=== PATIENT | male | born 1965 | race Caucasian/White ===

== ENCOUNTER → 2025-06-03 | Outpatient (CLI) | payer BC ==
[2025-06-03 13:36] LABS: Basophils # (A) 0.03 X 10*3/uL (0.00-0.10); Basophils % (A) 0.6 %; Eosinophils # (A) 0.37 X 10*3/uL (0.04-0.35); Eosinophils % (A) 7.0 %; HCT 40.5 % (39.6-50.0); HGB 14.3 g/dL (13.0-17.0); Immature Grans, Automated 0.20 %; Lymphocytes # (A) 1.95 X 10*3/uL (0.90-5.00); Lymphocytes % (A) 36.7 %; MCH 32.9 pg (27.0-32.0); MCHC 35.3 g/dL (32.0-37.0); MCV 93.1 FL (80.0-97.0); Monocytes # (A) 0.31 X 10*3/uL (0.20-1.00); Monocytes % (A) 5.8 %; NRBC Per 100 WBC 0 X 10*3/uL (0.00-0.01); Neutrophils # (A) 2.65 X 10*3/uL (1.80-7.70); Neutrophils % (A) 49.7 %; Platelet Count 241 X 10*3/uL (140-440); RBC 4.35 X 10*6/uL (4.40-5.60); RDW 12.1 % (11.5-14.5); WBC 5.32 X 10*3/uL (4.50-10.00)
[2025-06-03 13:40] LABS: Anion Gap 9.90 mmol/L (4.00-12.00); BUN/Creat Ratio 11.78 Ratio (12.00-20.00); Blood Urea Nitrogen 10.6 mg/dL (9.0-27.0); Calcium 9.2 mg/dL (8.7-10.3); Carbon Dioxide 26.1 mmol/L (21.6-31.8); Chloride 101 mmol/L (96-109); Glucose 110 mg/dL (70-110); Potassium 4.0 mmol/L (3.5-5.5); Sodium 137 mmol/L (135-145)
[2025-06-03 15:26] LABS: Bilirubin,Urine Negative (Negative); Blood,Urine Negative (Negative); Color,Urine Yellow (Yellow); Ketones,Urine Negative (Negative); Nitrite,Urine Negative (Negative); PH, Urine 6.5; Specific Gravity,Urine 1.003 (1.001-1.030); Urobilinogen,Urine 0.2 E.U./DL
== END | disposition home or self-care (01) ==
LOC: LABPAT 08:07
PROVIDERS: ATTEND Urology
DX: Z01.812 Encounter for preprocedural laboratory examination (principal); N20.0 Calculus of kidney
CPT/HCPCS: 80048; 81003; 85025; 87086

== ENCOUNTER 2025-06-13 09:45 | Day surgery (SDC) | payer BC ==
[~2025-06-13 09:45] MED LIST: LIDOCAINE 1% (10MG/ML) FOR IV START INTRADERMA PRN
--- NOTE | 2025-06-13 10:14 | XR ---
EXAMINATION TYPE: XR KUB DATE OF EXAM: 06/13/2025 10:07 AM COMPARISON: None. CLINICAL INDICATION: Male, 60 years old with history of N20.0 Z01.818, presurgical evaluation for kid zaki stone TECHNIQUE: XR KUB view(s) obtained supine view. FINDINGS: There is a normal bowel gas pattern. Psoas margins are normal. No organomegaly is present. There is an irregular 1.6 cm calcification in the medial right kidney region may be renal pelvic ston e. IMPRESSION: 1. 1.6 cm right renal pelvic region calcification. [facility], Workstation: [facility], 06/13/2025 10:11 AM
[2025-06-13] MEDS: IV FLUID CONTINUATION 1,000 ML IV ONE ×2 (10:19→13:30)
[2025-06-13] MEDS: LACTATED RINGERS 1,000 ML IV SCH (10:34)
[2025-06-13] MEDS: ONDANSETRON 4 MG/2 ML VIAL IVP ONE (10:35)
[2025-06-13] MEDS: DEXAMETHASONE SOD PHOSPHATE 4 MG/ML 1 ML VIAL IV ONE (10:35)
[2025-06-13] MEDS: MIDAZOLAM 2 MG/2 ML VIAL IV ONE (10:41)
--- NOTE | 2025-06-13 11:14 | P.HPIHPCON ---
History of Present Illness H&P Date: 06/13/25 Chief Complaint: Right renal stone This is a 60-year-old male with history of a 1.6 cm right-sided renal pelvic stone, he is symptomatic from his stone. Option of right-sided ureteroscopy with holmium laser was discussed. He is aware of the risk which include but not limited to bleeding, infection, injury to the ureter Consent for Procedure: I have explained the operation/procedure to the patient, including the risks, benefits, side effects, alternative therapies (including not receiving the proposed treatment or service), the likelihood of the patient achieving his/her goals, and potential recuperation problems for the procedure/sedation/analgesia, as well as any blood products, if indicated. I also explained to the patient the risks, benefits and side effects of the alternatives, as well as the risks related to not receiving the proposed procedure, care, treatment, or services. Past Medical History Past Medical History: No Reported History Additional Past Medical History / Comment(s): kidney stone, History of Any Multi-Drug Resistant Organisms: None Reported Past Surgical History: No Surgical Hx Reported Past Anesthesia/Blood Transfusion Reactions: No Reported Reaction Smoking Status: Former smoker Medications and Allergies Home Medications Medication Instructions Recorded Confirmed Type traMADol HCL 50 mg PO Q6H PRN 06/08/25 06/13/25 History Allergies Allergy/AdvReac Type Severity Reaction Status Date / Time No Known Allergies Allergy Verified 06/13/25 10:18 Surgical - Exam Vital Signs Temp Pulse Resp BP Pulse Ox 97.3 F L 60 18 139/98 97 06/13/25 10:17 06/13/25 10:17 06/13/25 10:17 06/13/25 10:17 06/13/25 10:17 - General no distress, moderate pain - Eyes normal ocular movement, no pale - ENT normal nares, normal mucosa - Respiratory normal expansion, normal respiratory effort Assessment and Plan Assessment: OR for right-sided ureteroscopy, holmium laser lithotripsy, stone basketing and stent insertion
[2025-06-13] MEDS ORDERED: GLYCOPYRROLATE 0.2 MG/ML 2 ML VIAL ONE (11:41)
[2025-06-13] MEDS ORDERED: LIDOCAINE 1% INJ 10MG/ML (20 ML MDV) ONE (11:41)
[2025-06-13] MEDS ORDERED: fentaNYL (PF) 50 MCG/ML 2 ML AMP ONE (11:41)
[2025-06-13] MEDS ORDERED: PROPOFOL 10 MG/ML 20 ML VIAL IV ONE (11:41)
[2025-06-13] MEDS ORDERED: PHENYLEPHRINE-0.9% NACL SYG 1,000 MCG/10 ML SYRINGE ONE (11:41)
--- NOTE | 2025-06-13 12:54 | FL ---
Fluoroscopy INDICATION: Pain FINDINGS: Fluoroscopy time: 12 seconds. Total dose area product (DAP) in uGy*m?, mGy*cm? (or similar): 186.36 Images obtained: 0. Images document the procedure. IMPRESSION: 1. Documentation of fluoroscopy. [facility], Workstation: [facility], 06/13/2025 12:52 PM
--- NOTE | 2025-06-13 13:05 | P.OP ---
Date of Procedure: 06/13/25 Preoperative Diagnosis: Right renal stone Postoperative Diagnosis: Same Procedure(s) Performed: Cystoscopy right ureteroscopy, laser lithotripsy, stone basketing and stent insertion Implants: 6 Scottish by 26 cm stents in the right ureter left on a string and taped to the patient penis Anesthesia: PEDRO Surgeon: Abe Urias Estimated Blood Loss (ml): 5 Pathology: other (Right renal stone) Condition: stable Disposition: PACU Indications for Procedure: This is a 60-year-old male with history of a 1.6 cm right-sided renal pelvic stone, he is symptomatic from his stone. Option of right-sided ureteroscopy with holmium laser was discussed. He is aware of the risk which include but not limited to bleeding, infection, injury to the ureter Operative Findings: Large stone in the renal pelvis Description of Procedure: Patient brought to the operating, general anesthesia was induced. He was prepped and draped in a sterile fashion placed in a dorsolithotomy position. Cystoscopy fitted with a 21 Scottish sheath was inserted per urethra, cystoscopy was performed showed no abnormality within the bladder. Prostate was mildly enlarged but nonocclusive. Attention was then carried to the right ureteral orifice, sensor wire was advanced under fluoroscopy and into the kidney. Next under fluoroscopy an 1113 Scottish access sheath was passed over the wire and into the proximal ureter. The flexible ureteroscope was inserted through the access sheath. Renoscopy was performed showed a large stone in the renal pelvis. Using holmium laser the stone was dusted, sizable fragments were removed using a stone basket. Repeat ureteroscopy showed no sizable fragments or injury to the kidney, on fluoroscopy there is no radiopaque density seen. Pullback ureteroscopy was performed showed no injury to the ureter or any ureteral stones, as ureteroscope was withdrawn a sensor wire was advanced through. Next a ureteral stent was passed over the wire, the proximal curl was visualized on fluoroscopy and the distal curl was visualized using the cystoscope. The bladder was emptied at the end of the case. Patient tolerated procedure well was taken to recovery in stable condition, the stent was left on a string and taped to the patient penis
[2025-06-13] MEDS: HYDROmorphone 0.5 MG/0.5 ML SYRINGE IVP PRN (13:06)
[2025-06-13 13:17] VITALS: TEMP 97.2
[2025-06-13] MEDS ORDERED: KETOROLAC 15 MG/ML 1 ML VIAL IM STA (13:20)
[2025-06-13 13:21] VITALS: RESP 16
[2025-06-13] MEDS: KETOROLAC 15 MG/ML 1 ML VIAL IVP STA (13:40)
[2025-06-13 14:36] VITALS: BP 139/88; PULSE 59
== END 2025-06-13 14:44 | disposition home or self-care (01) ==
LOC: OR 09:45
PROVIDERS: ATTEND Urology
DX: N20.0 Calculus of kidney (principal); Z87.891 Personal history of nicotine dependence
CPT/HCPCS: 52356; 82365; 74018; C2625; C1769 ×2; J2250; J1100; J0690; J2405; J2003; J3010; J1885; J2704; J1171; J2371; J1596